=== PATIENT | male | born 1970 | race Caucasian/White ===

== ENCOUNTER 2017-03-14 15:43 | Emergency (ER) | payer MEDICAID, OTHER ==
[~2017-03-14] VITALS: Ht 185.4 cm; Wt 96.0 kg
[~2017-03-14 15:43] MED LIST: HYDR-3533 PO; LISI-363 PO
[2017-03-14 15:46] VITALS: BP 147/91; PULSE 92; RESP 18; TEMP 98.4; O2SAT 98
[2017-03-14 16:53] LABS: AUTOMATED NEUTROPHIL # 4.6 TH/MM3 (1.8-7.7); BASOPHIL # 0.1 TH/MM3 (0-0.2); BASOPHIL % 0.7 % (0.0-2.0); EOSINOPHIL % 0.6 % (0.0-4.0); HEMATOCRIT 46.5 % (39.0-51.0); HEMO FLAGS DIFF FINAL; LYMPH % 32.1 % (9.0-44.0); LYMPHOCYTE # 2.5 TH/MM3 (1.0-4.8); MEAN CELL VOLUME 86.9 FL (80.0-100.0); MEAN CORPUSCULAR HEMOGLOBIN 30.2 PG (27.0-34.0); MEAN CORPUSCULAR HGB CONC 34.7 % (32.0-36.0); MONO % 8.7 % (0.0-8.0); NEUT % 57.9 % (16.0-70.0); PLATELET COUNT 232 TH/MM3 (150-450); RED BLOOD COUNT 5.35 MIL/MM3 (4.50-5.90); RED CELL DISTRIBUTION WIDTH 13.7 % (11.6-17.2); WHITE BLOOD COUNT 7.9 TH/MM3 (4.0-11.0)
[2017-03-14 17:16] LABS: ALKALINE PHOSPHATASE 85 U/L (45-117); TOTAL BILIRUBIN ADULT 0.6 MG/DL (0.2-1.0)
[2017-03-14 17:18] LABS: ALT (GPT) 21 U/L (12-78); ANION GAP 8 MEQ/L (5-15); AST (GOT) 17 U/L (15-37); BICARBONATE 26.4 MEQ/L (21.0-32.0); BLOOD UREA NITROGEN 13 MG/DL (7-18); CHLORIDE 104 MEQ/L (98-107); GLOMERULAR FILTRATION RATE 64 ML/MIN (>89); SODIUM (NA) 138 MEQ/L (136-145)
[2017-03-14 17:21] LABS: POTASSIUM 3.8 MEQ/L (3.5-5.1)
[2017-03-14 17:23] LABS: BLOOD, URINE LARGE (NEG); GLUCOSE,URINE NEG (NEG); KETONE, URINE NEG (NEG); MUCUS URINE FEW /lpf (OCC); NITRITE,URINE NEG (NEG); PH, URINE 5.5 (5.0-8.5); URINE COLOR YELLOW (YELLW/STRAW)
[2017-03-14 17:24] LABS: COMMENT (UR) CULT NOT INDICATED; CULTURE IF INDICATED CULT NOT INDICATED
[2017-03-14 17:31] VITALS: BP 143/97; PULSE 74; RESP 16; O2SAT 100
[2017-03-14] MEDS ORDERED: LISI-515 PO (17:37)
--- NOTE | 2017-03-14 17:50 | PD ---
HPI Chief Complaint: Complaint Time Seen by Provider: 17:30 Travel History International Travel<30 days: No Contact w/Intl Traveler<30days: No Traveled to known affect area: No History of Present Illness HPI This patient complains of right flank pain. Duration 2 days. Severity is moderate. He complains of hematuria. No fever or injury. Symptoms have no alleviating factors. No sciatic radiation PFSH Past Medical History Hx Anticoagulant Therapy: No Cardiovascular Problems: Yes (htn) Chemotherapy: No Cerebrovascular Accident: No Diabetes: No Diminished Hearing: No Hypertension: Yes Respiratory: No Immunizations Current: Yes Influenza Vaccination: Yes Past Surgical History Abdominal Surgery: Yes (EXPLORATORY LAP STOMACH) Other Surgery: Yes (RT RING FINGER) Social History Alcohol Use: No Tobacco Use: No Substance Use: No Allergies-Medications (Allergen,Severity, Reaction): Coded Allergies: acetaminophen (Unverified Allergy, Unknown, 03/14/17) propoxyphene (Unverified Allergy, Unknown, 03/14/17) Reported Meds & Prescriptions Reported Meds & Active Scripts Active Reported Lisinopril 20 Mg Tab 20 Mg PO DAILY Review of Systems General / Constitutional: No: Fever Eyes: No: Visual changes HENT: No: Headaches Cardiovascular: No: Chest Pain or Discomfort Respiratory: No: Shortness of Breath Gastrointestinal: No: Abdominal Pain Genitourinary: Positive: Flank Pain, No: Dysuria Musculoskeletal: Positive: Pain Skin: No Rash Neurologic: No: Weakness Psychiatric: No: Depression Endocrine: No: Polydipsia Hematologic/Lymphatic: No: Easy Bruising Physical Exam Narrative GENERAL: Well-nourished, well-developed patient in no apparent distress. SKIN: Focused skin assessment reveals no rash and nodules. Skin is Warm and dry. HEAD: Atraumatic. Normocephalic. EYES: Pupils equal and round. No scleral icterus. No injection or drainage. ENT: No nasal bleeding or discharge. Mucous membranes pink and moist. NECK: Trachea midline. No JVD. CARDIOVASCULAR: Regular rate and rhythm. No murmur appreciated. RESPIRATORY: No accessory muscle use. Clear to auscultation. Breath sounds equal bilaterally. GASTROINTESTINAL: Abdomen soft, non-tender, nondistended. Hepatic and splenic margins not palpable. MUSCULOSKELETAL: No obvious deformities. No clubbing. No cyanosis. No edema. No midline or CVA tenderness NEUROLOGICAL: Awake and alert. No obvious cranial nerve deficits. Motor grossly within normal limits. Normal speech. PSYCHIATRIC: Appropriate mood and affect; insight and judgment normal. Data Data Last Documented VS Vital Signs Date Time Temp Pulse Resp B/P Pulse Ox O2 Delivery O2 Flow Rate FiO2 03/14/17 17:31 74 16 143/97 100 Room Air 03/14/17 15:46 98.4 Orders Complete Blood Count With Diff (03/14/17 15:55) Comprehensive Metabolic Panel (03/14/17 15:55) Urinalysis - C+S If Indicated (03/14/17 15:55) Lipase (03/14/17 15:55) Ct Abd/Pel W/O Iv Contrast (03/14/17 ) Labs Laboratory Tests Test 03/14/17 03/14/17 16:02 16:25 White Blood Count 7.9 TH/MM3 Red Blood Count 5.35 MIL/MM3 Hemoglobin 16.2 GM/DL Hematocrit 46.5 % Mean Corpuscular Volume 86.9 FL Mean Corpuscular Hemoglobin 30.2 PG Mean Corpuscular Hemoglobin 34.7 % Concent Red Cell Distribution Width 13.7 % Platelet Count 232 TH/MM3 Mean Platelet Volume 8.7 FL Neutrophils (%) (Auto) 57.9 % Lymphocytes (%) (Auto) 32.1 % Monocytes (%) (Auto) 8.7 % Eosinophils (%) (Auto) 0.6 % Basophils (%) (Auto) 0.7 % Neutrophils # (Auto) 4.6 TH/MM3 Lymphocytes # (Auto) 2.5 TH/MM3 Monocytes # (Auto) 0.7 TH/MM3 Eosinophils # (Auto) 0.0 TH/MM3 Basophils # (Auto) 0.1 TH/MM3 CBC Comment DIFF FINAL Differential Comment Sodium Level 138 MEQ/L Potassium Level 3.8 MEQ/L Chloride Level 104 MEQ/L Carbon Dioxide Level 26.4 MEQ/L Anion Gap 8 MEQ/L Blood Urea Nitrogen 13 MG/DL Creatinine 1.21 MG/DL Estimat Glomerular Filtration 64 ML/MIN Rate Random Glucose 75 MG/DL Calcium Level 9.9 MG/DL Total Bilirubin 0.6 MG/DL Aspartate Amino Transf 17 U/L (AST/SGOT) Alanine Aminotransferase 21 U/L (ALT/SGPT) Alkaline Phosphatase 85 U/L Total Protein 7.8 GM/DL Albumin 4.3 GM/DL Lipase 106 U/L Urine Color YELLOW Urine Turbidity SLIGHT Urine pH 5.5 Urine Specific Butler 1.011 Urine Protein NEG mg/dL Urine Glucose (UA) NEG mg/dL Urine Ketones NEG mg/dL Urine Occult Blood LARGE Urine Nitrite NEG Urine Bilirubin NEG Urine Urobilinogen LESS THAN 2.0 MG/DL Urine Leukocyte Esterase NEG Urine RBC /hpf Urine WBC 1 /hpf Urine Mucus FEW /lpf Microscopic Urinalysis Comment CULT NOT INDICATED MDM Medical Decision Making Medical Screen Exam Complete: Yes Emergency Medical Condition: Yes Medical Record Reviewed: Yes Differential Diagnosis Kidney stone, sciatica, pyelonephritis Narrative Course I have reviewed the patient's electronic medical record. Reviewed his CT from last year showing nonobstructive stones and his cystoscopy results from last year CBC is normal Metabolic profile is normal LFTs are normal Urinalysis shows hematuria without infection CT of abdomen and pelvis shows bilateral nonobstructing stones but no hydronephrosis Stable for outpatient urology follow-up I wrote him some tramadol Diagnosis Primary Impression: Acute right flank pain Additional Impression: Hematuria Qualified Code: R31.9 - Hematuria, unspecified type Additional Instructions: Follow-up with urology The patient was warned about potential sedation for the medications they will receive on prescription. Med/Other Pt SpecificInfo: Prescription(s) given Scripts Tramadol 50 Mg Tab50 Mg PO Q6H PRN (PAIN) #25 TAB Ref 0 Prov:Chad Tatum MD 03/14/17 Disposition: 01 DISCHARGE HOME Condition: Stable Chad Tatum MD Mar 14, 2017 17:50
--- NOTE | 2017-03-14 20:02 | RADRPT ---
EXAM DATE/TIME: 03/14/2017 19:43 [facility] COMPARISON: CT ABDOMEN & PELVIS W/O CONTRAST, March 04, 2016, 10:49. CT LUMBAR SPINE W/O CONTRAST, October 01 16, 12:22. SPINE LUMBAR LTD (AP & LAT), May 18, 2016, 12:29. INDICATIONS : Right flank pain and hematuria. ORAL CONTRAST: No oral contrast ingested. RADIATION DOSE: 8.52 CTDIvol (mGy) MEDICAL HISTORY : Renal calculi. Cardiovascular disease Hypertension. SURGICAL HISTORY : Exploratory lap surgery ENCOUNTER: Initial ACUITY: 1 day PAIN SCALE: 7/10 LOCATION: Right flank TECHNIQUE: Volumetric scanning of the abdomen and pelvis was performed. Using automated exposure control and ad justment of the mA and/or kV according to patient size, radiation dose was kept as low as reasonably achievable to obtain optimal diagnostic quality images. DICOM format image data is available electro nically for review and comparison. FINDINGS: CT Abdomen: The liver, spleen, pancreas, adrenals are unremarkable. There are multiple stones in both kidneys. In the right kidney there are 6 may be 7 separate stones the largest measures 4-5 minutes s wilfred in size. In the left kidney there are 5 may be see separate stones the largest one measuring al most 3-4 mm in size. There is no evidence for any appreciable pathological adenopathy, free fluid, or bowel obstruction. There is no ureteral stone and there is no hydronephrosis on either side. There is evidence for prior cholecystectomy. CT pelvis: There is no evidence for mass, abscess formation, or any significant adenopathy within the pelvis. The prostate gland is inhomogeneous and measures 3.3 x 4.4 cm in AP and transverse diameters and nonspecific with dense calcifications. There is facet arthrosis in the lower lumbosacral spine a nd it is difficult to exclude spondylolysis chronic in nature. CONCLUSION: Multiple nonobstructing bilateral renal stones. Allen Castano MD on March 14, 2017 at 19:55 Board Certified Radiologist. This report was verified electronically.
[2017-03-14] MEDS ORDERED: TRAM50TA PO (20:48)
== END 2017-03-14 20:59 | disposition home or self-care (01) ==
LOC: NEPD 15:43
DX: R10.9 Unspecified abdominal pain (principal); R31.9 Hematuria, unspecified; I10 Essential (primary) hypertension
CPT/HCPCS: 74176; 80053; 81001; 83690; 85025

== ENCOUNTER 2017-04-15 08:16 | Emergency (ER) | payer OTHER, MEDICAID ==
[~2017-04-15] VITALS: Ht 185.4 cm; Wt 99.0 kg
[~2017-04-15 08:16] MED LIST changes: -HYDR-3533 PO; -LISI-363 PO; +LISI-515 PO; +TRAM50TA PO
[2017-04-15 08:18] VITALS: BP 160/100; PULSE 72; RESP 24; TEMP 97.8; O2SAT 100
--- NOTE | 2017-04-15 08:42 | PD ---
HPI Chief Complaint: Back/ Neck Pain or Injury Time Seen by Provider: 08:42 Travel History International Travel<30 days: No Contact w/Intl Traveler<30days: No Traveled to known affect area: No History of Present Illness HPI 46-year-old male presents emergency Department with complaint of mid and right- sided lower back pain after slipping on a piece of ham on the floor at work and falling and landing on his buttocks 3 days ago. He was seen at [facility] today after the fall and said x-rays were done but he was told that he would be okay until better in a few days and has not told the conclusion of the x-rays. His pain has worsened and he would like to be reevaluated. Denies history of back pain. Denies encopresis, incontinence, saddle anesthesias. Denies IV drug use or cancer. Denies paresthesias, loss of sensation, decreased range of motion, decreased strength to bilateral lower extremities. Pain radiates down the right leg. Denies fever, vomiting. Denies change in stool or urine. Pain is aggravated with ambulation and patient has a limp to the right lower extremity. Has been taking ibuprofen for symptom management. Symptoms are moderate in severity. Has no other medical complaints. Allergies to acetaminophen and propoxyphene. No other modifying factors or associated signs and symptoms. PFSH Past Medical History Hx Anticoagulant Therapy: No Cardiovascular Problems: Yes (htn) Chemotherapy: No Cerebrovascular Accident: No Diabetes: No Diminished Hearing: No Hypertension: Yes Respiratory: No Immunizations Current: Yes Past Surgical History Abdominal Surgery: Yes (EXPLORATORY LAP STOMACH) Other Surgery: Yes (RT RING FINGER) Social History Alcohol Use: No Tobacco Use: No Substance Use: No Allergies-Medications (Allergen,Severity, Reaction): Coded Allergies: acetaminophen (Unverified Allergy, Unknown, 03/14/17) propoxyphene (Unverified Allergy, Unknown, 03/14/17) Reported Meds & Prescriptions Reported Meds & Active Scripts Active Reported Lisinopril 20 Mg Tab 20 Mg PO DAILY Review of Systems Except as stated in HPI: all other systems reviewed are Neg Physical Exam Narrative GENERAL: Well-nourished, well-developed male patient, in no acute distress; afebrile, nontoxic-appearing SKIN: Warm and dry. HEAD: Atraumatic. Normocephalic. EYES: Pupils equal and round. No scleral icterus. No injection or drainage. ENT: Mucosa pink and moist. Airway patent. NECK: Trachea midline. Moving freely. CARDIOVASCULAR: Regular rate. RESPIRATORY: No accessory muscle use. GASTROINTESTINAL: Rounded. MUSCULOSKELETAL: Bilateral lower extremities supple and non-tense with 2+ pedal pulses and sensory intact; with full range of motion and 5/5 strength. 2 + DTRs bilaterally. Active dorsiflexion and extension of bilateral feet. Right straight leg raise is positive for low back pain. Ambulatory in room with limp to the right lower extremity and guarded gait. Sitting up in bed at 90. No obvious deformities. No clubbing. No cyanosis. No edema. BACK: Midline point tenderness on palpation of the lumbar spine. No midline tenderness on palpation of the thoracic or cervical spine. Tenderness on palpation of right lumbar paraspinal and iliosacral area. No obvious deformities. NEUROLOGICAL: Awake and alert. Oriented 3. No obvious cranial nerve deficits. Motor grossly within normal limits. Normal speech. Moves all extremities. 5/5 strength to all extremities. Sensory intact. PSYCHIATRIC: Appropriate mood and affect; insight and judgment normal. Data Data Last Documented VS Vital Signs Date Time Temp Pulse Resp B/P (MAP) Pulse Ox O2 Delivery O2 Flow Rate FiO2 04/15/17 08:25 17 04/15/17 08:18 97.8 72 160/100 (120) 100 Room Air Orders Orders Ct Lumb Spine W/O Contrast (04/15/17 ) Ketorolac Inj (Toradol Inj) (04/15/17 08:45) Orphenadrine Inj (Norflex Inj) (04/15/17 08:45) MDM Medical Decision Making Medical Screen Exam Complete: Yes Emergency Medical Condition: Yes Medical Record Reviewed: Yes Differential Diagnosis Low back strain, low back contusion, lumbar fracture, sciatica Narrative Course 46-year-old male with low back pain after mechanical slip and fall 3 days ago. He landed on his butt. He was evaluated at [facility] the day after the fall and had x-rays done which the patient does not know the results. Denies hitting his head or loss of consciousness. Denies neck pain. Denies encopresis , incontinence, saddle anesthesias. Denies IV drug use or cancer. Denies fever , vomiting. Patient is ambulatory in the room with a guarded gait. Patient has tenderness on palpation of the lumbar spine. Toradol and Norflex administered in the ER. CT lumbar spine ordered. 0949: CT lumbar spine concludes: Last 24 hours Impressions Lumbar Spine CT 04/15/17 0000 Signed Impressions: Service Date/Time: Thursday, April 15, 2017 09:00 - CONCLUSION: Minimal disc disease L5-S1 with mild progression in the interval. Bilateral renal stones There is no evidence of fracture. Jaswant Peters MD FACR Patient provided a copy of the CT scan report and findings discussed. Flexeril , ibuprofen, Medrol Dosepak prescribed for home. Instructed patient to follow up with primary care provider. Patient verbalizes understanding and agreement with treatment plan. Patient is medically cleared and stable for discharge. Discussed reasons to return to the emergency department. Patient agrees with treatment plan. The patients vital signs are stable and the patient is stable for outpatient follow-up and treatment. Patient discharged home, stable and in no acute distress. Diagnosis Primary Impression: Injury of low back Qualified Codes: S39.92XA - Unspecified injury of lower back, initial encounter Additional Impression: Right-sided low back pain with right-sided sciatica Qualified Codes: M54.41 - Lumbago with sciatica, right side Referrals: Primary Care Physician Patient Instructions: Acute Low Back Pain (ED), General Instructions, Low Back Strain (ED), Lower Back Exercises (ED), Sciatica (ED) Departure Forms: Tests/Procedures, Work Release Enter return to work date: Apr 22, 2017 Additional Instructions: Tylenol or ibuprofen as directed and as needed for pain Flexeril as prescribed and as needed for muscle spasms Heating pad and/or ice to affected area to reduce pain Avoid aggravating activities; increase activity as tolerated Follow-up with primary care provider Return to emergency department immediately with worsening of symptoms Med/Other Pt SpecificInfo: Prescription(s) given Scripts Methylprednisolone Dosepak (Medrol Dosepak) 4 Mg Dspk 4 MG PO DIRECTED, #1 DSPK 0 Refills Per Pharmacist direction Prov: Laura Graves 04/15/17 Ibuprofen (Ibuprofen) 800 Mg Tab 800 MG PO Q6HR Y for PAIN, #30 TAB 0 Refills Prov: Laura GravesP 04/15/17 Cyclobenzaprine (Flexeril) 10 Mg Tab 10 MG PO TID for Muscle Spasm, #30 TAB 0 Refills Prov: Laura Graves 04/15/17 Disposition: 01 DISCHARGE HOME Condition: Stable Laura Graves Apr 15, 2017 08:42
[2017-04-15] MEDS ORDERED: KETOROLAC TROMETHAMINE 60 MG/2 ML (IM) VIAL IM ONE (08:45)
[2017-04-15] MEDS ORDERED: ORPHENADRINE INJ 60 MG/2 ML AMP IM ONE (08:45)
--- NOTE | 2017-04-15 09:39 | RADRPT ---
EXAM DATE/TIME: 04/15/2017 09:00 [facility] COMPARISON: CT LUMBAR SPINE W/O CONTRAST, October 02, 2015, 12:22. INDICATIONS : Fall 3 days ago. Right lower back pain. RADIATION DOSE: 21.85 CTDIvol (mGy) MEDICAL HISTORY : Hypertension. SURGICAL HISTORY : None. ENCOUNTER: Initial ACUITY: 3 days PAIN SCALE: 5/10 LOCATION: Right back TECHNIQUE: Volumetric scanning of the lumbar spine was performed. Multiplanar reconstructions in the sagittal, coronal and oblique axial planes were performed. Using automated exposure control and adjustment of the mA and/or kV according to patient size, radiation dose was kept as low as reasonably achievable t o obtain optimal diagnostic quality images. DICOM format image data is available electronically for review and comparison. FINDINGS: VERTEBRAE: Normal vertebral body height. ALIGNMENT: No evidence of subluxation. T12-L1: The thecal sac has a normal diameter. No evidence of disc bulge or protrusion. The neural foramina are patent bilaterally. L1-L2: The thecal sac has a normal diameter. No evidence of disc bulge or protrusion. The neural foramina are patent bilaterally. L2-L3: The thecal sac has a normal diameter. No evidence of disc bulge or protrusion. The neural foramina are patent bilaterally. L3-L4: The thecal sac has a normal diameter. No evidence of disc bulge or protrusion. The neural foramina are patent bilaterally. L4-L5: The thecal sac has a normal diameter. No evidence of disc bulge or protrusion. The neural foramina are patent bilaterally. Minimal facet disease is evident. L5-S1: There is essentially disc bulging evident causing mild right-sided neuroforaminal encroachment and co mpression on the right L5 root in the neural foramen. There is minimal involvement of the right S1 r oot. Bilateral renal calculi are evident. CONCLUSION: Minimal disc disease L5-S1 with mild progression in the interval. Bilateral renal stones There is no evidence of fracture. Jaswant Peters MD FACR on April 15, 2017 at 9:35 Board Certified Radiologist. This report was verified electronically.
[2017-04-15] MEDS ORDERED: MEDR4PAK PO (09:52)
[2017-04-15] MEDS ORDERED: CYCL1TAB29 PO (09:52)
[2017-04-15] MEDS ORDERED: IBUP800T23 PO (09:52)
== END 2017-04-15 10:12 | disposition home or self-care (01) ==
LOC: NEPD 08:16
DX: S39.92XA Unspecified injury of lower back, initial encounter (principal); M54.41 Lumbago with sciatica, right side; I10 Essential (primary) hypertension; W01.198A Fall on same level from slipping, tripping and stumbling with subsequent striking against other object, initial encounter; Y93.9 Activity, unspecified; Y92.9 Unspecified place or not applicable; Y99.0 Civilian activity done for income or pay
CPT/HCPCS: 72131; 96372; 99285; J1885; J2360

== ENCOUNTER 2017-06-05 14:05 | Emergency (ER) | payer OTHER, MEDICAID ==
[~2017-06-05] VITALS: Ht 185.4 cm; Wt 100.0 kg
[~2017-06-05 14:05] MED LIST changes: +CYCL10TA PO; +IBUP1TAB7 PO; +MEDR4PAK PO; -TRAM50TA PO
[2017-06-05 14:07] VITALS: BP 138/96; PULSE 77; RESP 14; TEMP 98.7; O2SAT 99
--- NOTE | 2017-06-05 14:32 | PD ---
HPI Chief Complaint: Fall Time Seen by Provider: 14:14 Travel History International Travel<30 days: No Contact w/Intl Traveler<30days: No Traveled to known affect area: No History of Present Illness HPI 46-year-old male presents emergency status post slip and fall at work on 04/04/2017. Patient has been seen and evaluated both at [facility] and here, last on 04/15/17. Patient has been seen Worker's Comp. providers but in the last 3 days he's had increasing symptoms consisting of right-sided low back pain with radicular pain into the right lower leg. Patient is stating he could not get into his Worker's Comp. provider until next Thursday. Patient is having increased pain and difficulty ambulating, which is why he came to the emergency department. Patient denies any specific new injury, but states that his workplace has not been adhering to his restrictions as applied by Worker's Comp. Pain is now 9 out of 10 down the right leg. He states he cannot control. He is instructed to his sleep. Bowel or bladder trouble. Denies specific weakness other than from pain. Patient is allergic to acetaminophen and propoxyphene. PFSH Past Medical History Hx Anticoagulant Therapy: No Cardiovascular Problems: Yes (htn) Chemotherapy: No Cerebrovascular Accident: No Diabetes: No Diminished Hearing: No Hypertension: Yes Respiratory: No Immunizations Current: Yes Past Surgical History Abdominal Surgery: Yes (EXPLORATORY LAP STOMACH) Other Surgery: Yes (RT RING FINGER) Social History Alcohol Use: No Tobacco Use: No Substance Use: No Allergies-Medications (Allergen,Severity, Reaction): Coded Allergies: acetaminophen (Unverified Allergy, Unknown, 03/14/17) propoxyphene (Unverified Allergy, Unknown, 03/14/17) Reported Meds & Prescriptions Reported Meds & Active Scripts Active Tramadol (Tramadol HCl) 50 Mg Tab 50 Mg PO Q6H PRN Prednisone 20 Mg Tab 20 Mg PO BID 7 Days Medrol Dosepak (Methylprednisolone) 4 Mg Dspk 4 Mg PO DIRECTED Per Pharmacist direction Ibuprofen 800 Mg Tab 800 Mg PO Q6HR PRN Flexeril (Cyclobenzaprine HCl) 10 Mg Tab 10 Mg PO TID Reported Lisinopril 20 Mg Tab 20 Mg PO DAILY Review of Systems Except as stated in HPI: all other systems reviewed are Neg General / Constitutional: No: Fever Eyes: No: Visual changes HENT: No: Headaches Cardiovascular: No: Chest Pain or Discomfort Respiratory: No: Shortness of Breath Gastrointestinal: No: Abdominal Pain Genitourinary: No: Dysuria Musculoskeletal: Positive: Myalgias, Arthralgias, Limited ROM, Pain Skin: No Rash Neurologic: No: Weakness Psychiatric: No: Depression Endocrine: No: Polydipsia Hematologic/Lymphatic: No: Easy Bruising Physical Exam Narrative GENERAL: Patient is in moderate distress. SKIN: Warm and dry. Normal color. Normal turgor. No signs of trauma. No rash. HEAD: Atraumatic. Normocephalic. EYES: Pupils equal and round. No scleral icterus. No injection or drainage. ENT: No nasal bleeding or discharge. Mucous membranes pink and moist. Pharynx is clear. Airway is patent NECK: Trachea midline. Supple and nontender. CARDIOVASCULAR: Regular rate and rhythm. RESPIRATORY: No accessory muscle use. Clear to auscultation. Breath sounds equal bilaterally. GASTROINTESTINAL: Abdomen soft, non-tender, nondistended. Hepatic and splenic margins not palpable. MUSCULOSKELETAL: Extremities without clubbing, cyanosis, or edema. No obvious deformities. Patient has pain along the right lower lumbar paraspinous region as well as into the sciatic notch. Patient has positive straight leg raise pain on the right at 30. Deep tendon reflexes are 2+ and equal bilaterally in both patellar and Achilles tendons. Patient is able to tiptoe and heel walk without difficulty secondary to pain. NEUROLOGICAL: Awake and alert. No obvious cranial nerve deficits. Motor grossly within normal limits. Five out of 5 muscle strength in the arms and legs. Normal speech. PSYCHIATRIC: Appropriate mood and affect; insight and judgment normal. Data Data Last Documented VS Vital Signs Date Time Temp Pulse Resp B/P (MAP) Pulse Ox O2 Delivery O2 Flow Rate FiO2 06/05/17 14:07 98.7 77 14 138/96 (110) 99 Orders Orders Dexamethasone Inj (Decadron Inj) (06/05/17 14:45) Ketorolac Inj (Toradol Inj) (06/05/17 14:45) [facility] Medical Decision Making Medical Screen Exam Complete: Yes Emergency Medical Condition: Yes Medical Record Reviewed: Yes Differential Diagnosis Lumbar strain. Sciatica. Lumbago. Slip and fall. Narrative Course Repeat radiographic imaging is not felt warranted at this time based on my history and physical. Patient is given Toradol 60 mg IM. Patient is given Decadron 10 mg IM. Patient will be continued on prednisone 20 mg twice a day 7 days. Patient given tramadol 50 mg one every 6 hours when necessary pain #20. Patient is kept out of work until cleared by Worker's Comp. Worker's Comp. forms filled out, and patient should follow-up with them on 09 June. Patient should return to the emergency department if symptoms worsen especially weakness or bowel or bladder issues. Diagnosis Primary Impression: Work related injury Additional Impression: Lumbago with sciatica, right side Qualified Codes: M54.41 - Lumbago with sciatica, right side Patient Instructions: General Instructions, Lower Back Exercises (ED), Lumbar Radiculopathy (ED) Additional Instructions: Repeat radiographic imaging is not felt warranted at this time based on my history and physical. Patient is given Toradol 60 mg IM. Patient is given Decadron 10 mg IM. Patient will be continued on prednisone 20 mg twice a day 7 days. Patient given tramadol 50 mg one every 6 hours when necessary pain #20. Patient is kept out of work until cleared by Worker's Comp. Worker's Comp. forms filled out, and patient should follow-up with them on 09 June. Patient should return to the emergency department if symptoms worsen especially weakness or bowel or bladder issues. Med/Other Pt SpecificInfo: Prescription(s) given Scripts Tramadol (Tramadol) 50 Mg Tab 50 MG PO Q6H Y for PAIN, #20 TAB 0 Refills Prov: Suhas Rose MD 06/05/17 Prednisone (Prednisone) 20 Mg Tab 20 MG PO BID for 7 Days, #14 TAB 0 Refills Prov: Suhas Rose MD 06/05/17 Disposition: 01 DISCHARGE HOME Condition: Stable Trenton Hightower Jun 05, 2017 14:32
[2017-06-05] MEDS ORDERED: PRED20 PO (14:35)
[2017-06-05] MEDS ORDERED: TRAM50TA PO (14:35)
[2017-06-05] MEDS ORDERED: KETOROLAC TROMETHAMINE 60 MG/2 ML (IM) VIAL IM ONE (14:45)
[2017-06-05] MEDS ORDERED: DEXAMETHASONE SOD PHOS 20 MG/5 ML VIAL IM ONE (14:45)
== END 2017-06-05 15:22 | disposition home or self-care (01) ==
LOC: NEPK 14:05
DX: M54.41 Lumbago with sciatica, right side (principal); W01.0XXA Fall on same level from slipping, tripping and stumbling without subsequent striking against object, initial encounter; Y99.0 Civilian activity done for income or pay
CPT/HCPCS: 96372; 99284; J1100; J1885

== ENCOUNTER 2017-06-21 10:11 | Inpatient (IN) | payer MEDICAID ==
[~2017-06-21] VITALS: Ht 185.4 cm; Wt 94.5 kg
[2017-06-21] VITALS (7 sets, daily range): BP systolic 134–180; BP diastolic 83–116; PULSE 77–99; RESP 16–18; TEMP 97.6–98.5; O2SAT 95–100
[~2017-06-21 10:11] MED LIST changes: +PRED20 PO; +TRAM50TA PO
--- NOTE | 2017-06-21 10:34 | PD ---
HPI Chief Complaint: Eye Problems/Injury Time Seen by Provider: 10:27 Travel History International Travel<30 days: No Contact w/Intl Traveler<30days: No Traveled to known affect area: No History of Present Illness HPI Patient presents with complaints of progressive blurred vision photophobia and headache over the last 5 months. Headache is located just behind both eyes. Initially went to [facility] for assistance with eyeglasses. They recommended an career information specialist. Evaluated by [facility] with concerns of bilateral optic neuritis. Without any significant findings. They recommended follow-up with neurology. Patient is not a smoker. Denies any illicit drug use. Compliant with lisinopril for hypertension. Patient states he has been unable to follow-up with neurology and today is his only day off. Alternating Motrin and Tylenol for pain. Compliant with lisinopril for hypertension. PFSH Past Medical History Hx Anticoagulant Therapy: No Cardiovascular Problems: Yes (htn) Chemotherapy: No Cerebrovascular Accident: No Diabetes: No Diminished Hearing: No Hypertension: Yes Respiratory: No Immunizations Current: Yes Tetanus Vaccination: < 5 Years Past Surgical History Abdominal Surgery: Yes (EXPLORATORY LAP STOMACH) Other Surgery: Yes (RT RING FINGER) Social History Alcohol Use: No Tobacco Use: No Substance Use: No Allergies-Medications (Allergen,Severity, Reaction): Coded Allergies: acetaminophen (Unverified Allergy, Unknown, 06/21/17) propoxyphene (Unverified Allergy, Unknown, 06/21/17) Reported Meds & Prescriptions Reported Meds & Active Scripts Active Reported Lisinopril 20 Mg Tab 20 Mg PO DAILY Review of Systems General / Constitutional: No: Fever Eyes: No: Visual changes HENT: No: Headaches Cardiovascular: No: Chest Pain or Discomfort Respiratory: No: Shortness of Breath Gastrointestinal: No: Abdominal Pain Genitourinary: No: Dysuria Musculoskeletal: No: Pain Skin: No Rash Neurologic: No: Weakness Psychiatric: No: Depression Endocrine: No: Polydipsia Hematologic/Lymphatic: No: Easy Bruising Physical Exam Narrative GENERAL: Well-nourished, well-developed patient. SKIN: Focused skin assessment warm/dry. HEAD: Normocephalic. EYES: No scleral icterus. No injection or drainage. Pupils equal round reactive light accommodation NECK: Supple, trachea midline. No JVD or lymphadenopathy. CARDIOVASCULAR: Regular rate and rhythm without murmurs, gallops, or rubs. RESPIRATORY: Breath sounds equal bilaterally. No accessory muscle use. GASTROINTESTINAL: Abdomen soft, non-tender, nondistended. MUSCULOSKELETAL: No cyanosis, or edema. BACK: Nontender without obvious deformity. No CVA tenderness. Data Data Last Documented VS Vital Signs Date Time Temp Pulse Resp B/P (MAP) Pulse Ox O2 Delivery O2 Flow Rate FiO2 06/21/17 10:15 97.6 83 18 170/96 (120) [address] Brain W/O Iv Contrast(Rout) (06/21/17 ) Westergren Sedimentation Rate (06/21/17 12:40) Acetamin-Hydrocod 325-5 Mg (Ilfeld 5-325 (06/21/17 12:45) Complete Blood Count With Diff (06/21/17 12:47) Comprehensive Metabolic Panel (06/21/17 12:47) Prothrombin Time / Inr (Pt) (06/21/17 12:47) Act Partial Throm Time (Ptt) (06/21/17 12:47) Methylprednisolone So Succ Inj (Solumedr (06/21/17 13:00) Admit Order (Ed Use Only) (06/21/17 ) Vital Signs (Adult) Q4H (06/21/17 12:55) Diet Heart Healthy (06/21/17 Lunch) Notify Dr: Other (06/21/17 12:55) Consult Neurology (06/21/17 ) Labs Laboratory Tests Test 06/21/17 12:50 White Blood Count 7.6 TH/MM3 Red Blood Count 5.09 MIL/MM3 Hemoglobin 15.1 GM/DL Hematocrit 45.6 % Mean Corpuscular Volume 89.6 FL Mean Corpuscular Hemoglobin 29.7 PG Mean Corpuscular Hemoglobin Concent 33.1 % Red Cell Distribution Width 13.6 % Platelet Count 229 TH/MM3 Mean Platelet Volume 8.1 FL Neutrophils (%) (Auto) 64.1 % Lymphocytes (%) (Auto) 27.9 % Monocytes (%) (Auto) 7.0 % Eosinophils (%) (Auto) 0.5 % Basophils (%) (Auto) 0.5 % Neutrophils # (Auto) 5.0 TH/MM3 Lymphocytes # (Auto) 2.1 TH/MM3 Monocytes # (Auto) 0.5 TH/MM3 Eosinophils # (Auto) 0.0 TH/MM3 Basophils # (Auto) 0.0 TH/MM3 CBC Comment DIFF FINAL Differential Comment Erythrocyte Sedimentation Rate 1 mm/hr Prothrombin Time 10.2 SEC Prothromb Time International Ratio 0.9 RATIO Activated Partial Thromboplast Time 33.4 SEC Blood Urea Nitrogen 9 MG/DL Creatinine 1.00 MG/DL Random Glucose 86 MG/DL Total Protein 7.2 GM/DL Albumin 3.8 GM/DL Calcium Level 9.2 MG/DL Alkaline Phosphatase 86 U/L Aspartate Amino Transf (AST/SGOT) 14 U/L Alanine Aminotransferase (ALT/SGPT) 23 U/L Total Bilirubin 0.6 MG/DL Sodium Level 139 MEQ/L Potassium Level 4.3 MEQ/L Chloride Level 106 MEQ/L Carbon Dioxide Level 28.3 MEQ/L Anion Gap 5 MEQ/L Estimat Glomerular Filtration Rate 80 ML/MIN MDM Medical Decision Making Medical Screen Exam Complete: Yes Emergency Medical Condition: Yes Differential Diagnosis CVA, migraine, optic neuritis Narrative Course Assessment and plan discussed with patient at bedside. CT of the head reveals no acute intracranial process. Extracranial findings findings reveal a portion of the orbits which are intact. Small air-fluid level in the visualized portion of the left maxillary sinus Physician Communication Physician Communication Spoke with Dr. Kohli/neurology with recommendations for admissions, an MRI, consult to radiology for LP and Solu-Medrol 1000 mg daily over 3 hours for [address] Redman who is in agreement will admit. Diagnosis Primary Impression: Blurred vision Additional Impressions: Photophobia Headache Qualified Codes: R51 - Headache Optic neuritis Valdo Manley MD Jun 21, 2017 10:34
--- NOTE | 2017-06-21 11:10 | RADRPT ---
EXAM DATE/TIME: 06/21/2017 10:43 [facility] COMPARISON: CT BRAIN W/O CONTRAST, October 02, 2015, 12:19. INDICATIONS : Bilateral eye pain with blurred vision for three months. RADIATION DOSE: 59.98 CTDIvol (mGy) MEDICAL HISTORY : Hypertension. Renal calculi. SURGICAL HISTORY : None. ENCOUNTER: Initial ACUITY: 3 months PAIN SCALE: 8/10 LOCATION: Bilateral cranial TECHNIQUE: Multiple contiguous axial images were obtained of the head. Using automated exposure control and adj ustment of the mA and/or kV according to patient size, radiation dose was kept as low as reasonably a chievable to obtain optimal diagnostic quality images. DICOM format image data is available electro nically for review and comparison. FINDINGS: CEREBRUM: The ventricles are normal for age. No evidence of midline shift, mass lesion, hemorrhage or acute in farction. No extra-axial fluid collections are seen. POSTERIOR FOSSA: The cerebellum and brainstem are intact. The 4th ventricle is midline. The cerebellopontine angle i s unremarkable. EXTRACRANIAL: The visualized portion of the orbits is intact. Small air-fluid level in the visualized portion of t he left maxillary sinus. SKULL: The calvaria is intact. No evidence of skull fracture. CONCLUSION: 1. No acute findings in the brain. 2. Small air-fluid level left maxillary sinus. Gerry Redmond MD on June 21, 2017 at 11:07 Board Certified Radiologist. This report was verified electronically.
[2017-06-21] MEDS ORDERED: ACETAMINOPHEN/HYDROcodone 325 MG/5 MG TAB PO ONE (12:45)
[2017-06-21] MEDS ORDERED: methylPREDNISolone SO SUCC INJ 1,000 MG in DEXTROSE 5% IN WATER 100ML INJ 100 ML IV ONE ×4 (13:00→13:15)
--- NOTE | 2017-06-21 13:00 | HHI.HP ---
[facility] No Primary Care Physician Admission Diagnosis possible optic neuritis Diagnoses: (1) Blurred vision Diagnosis: Principal (2) Photophobia Diagnosis: Principal (3) Optic neuritis Diagnosis: Principal Travel History International Travel<30 Days: No Contact w/Intl Traveler <30 Da: No Traveled to Known Affected Are: No History of Present Illness Written by Chad Petersen, acting as scribe for Dr. Redman on 06/21/17 at 12 :59. 46 year-old male with known history of hypertension who presented to hospital because of eye pain, photophobia, blurred vision. Patient indicates that her last 5 months he has been having progressive blurred vision, eye pain. Patient indicates that he did go to optometry for eye evaluation and was told that his vision was 20/100, 20/80 and patient needed to have evaluation with ophthalmology. Patient was evaluated at [facility] on Thursday of this week by ophthalmology and he indicates that his vision was 20/800 at that visit and he was notified to follow-up with a neurologist for further evaluation and management of optic neuritis. The patient has not followed up with any neurologist this time. Patient came to emergency department because he had worsening pain, photophobia. The patient had evaluation done by ER physician, who called neurologist that recommended patient be admitted with MRI, Solu- Medrol, lumbar puncture. At the time evaluating the patient he appears to be in painful distress. He is wearing sunglasses and covering his eyes with a washcloth because of his pain. He states that he has not been able to drive himself because he cannot see due to the severe blurred vision. His son and have had to drive him places. The patient has been admitted waiting further evaluation and results for appropriate management Review of Systems Eyes: COMPLAINS OF: Blurred vision, Eye pain, Photosensitivity Except as stated in HPI: all other systems reviewed are Neg Past Family Social History Past Medical History Hypertension Anxiety depression Recent neck/back injury, undergoing workman comp workup and treatment Past Surgical History Exploratory laparoscopy Right hand third digit nerve repair Reported Medications Reported Meds & Active Scripts Active Reported Lisinopril 20 Mg Tab 20 Mg PO DAILY Allergies: Coded Allergies: acetaminophen (Unverified Allergy, Unknown, 06/21/17) propoxyphene (Unverified Allergy, Unknown, 06/21/17) Family History Reviewed is significant for mother having heart disease, myocardial infarction, cancer Social History No indication of any tobacco, alcohol or illicit drugs Physical Exam Vital Signs Vital Signs Date Time Temp Pulse Resp B/P (MAP) Pulse Ox O2 Delivery O2 Flow Rate FiO2 06/21/17 10:15 97.6 83 18 170/96 (120) 98 Physical Exam GENERAL: Well-developed, well-nourished, patient appears to be in painful distress. alert and orientated HEENT: Head is normocephalic without any lesions or masses noted. Facial features are symmetric. Eyes: Patient wearing sunglasses and covering eyes with washcloth due to severe pain and photophobia. Will defer exam since ER physician already has done one and awaiting neurology who will also perform exam. Oropharyngeal: Pharynx without any erythema edema. Tongue is midline without deviation. Buccal mucosa is moist without any masses or lesions NECK: Supple without any masses. Trachea midline no deviation. No JVD, no bruits are appreciated CARDIAC: Regular rhythm, regular rate. S1/S2 are heard. No murmurs gallops or rubs. LUNGS: Clear to auscultation bilaterally. No wheeze, rhonchi or rales. No use of accessory muscles on inspiration or expiration. ABDOMEN: Soft, nontender. Nondistended. Bowel sounds heard in all 4 quadrants. No organomegaly or masses. Negative rebound, negative guarding EXTREMITIES: No edema, pulses are equal bilaterally. No cyanosis or clubbing NEUROLOGY: Mood and affect appear appropriate. Cranial nerves II through XII grossly intact. Muscle strength 5/5 in upper and lower extremities bilaterally. Deep tendon reflexes are 2+ in upper and lower extremities bilaterally. Caprini VTE Risk Assessment Caprini VTE Risk Assessment: No/Low Risk (score <= 1) Caprini Risk Assessment Model Point Value = 1 Point Value = 2 Point Value = 3 Point Value = 5 Age 41-60 Minor surgery BMI > 25 kg/m2 Swollen legs Varicose veins or History of unexplained or recurrent spontaneous Oral contraceptives or hormone replacement Sepsis (< 1 month) Serious lung disease, including pneumonia (< 1 month) Abnormal pulmonary function Acute myocardial infarction Congestive heart failure (< 1 month) History of inflammatory bowel disease Medical patient at bed rest Age 61-74 Arthroscopic surgery Major open surgery (> 45 min) Laparoscopic surgery (> 45 min) Malignancy Confined to bed (> 72 hours) Immobilizing plaster cast Central venous access Age >= 75 History of VTE Family history of VTE Factor V Leiden Prothrombin [id number] Lupus anticoagulant Anticardiolipin antibodies Elevated serum homocysteine Heparin-induced thrombocytopenia Other congenital or acquired thrombophilia Stroke (< 1 month) Elective arthroplasty Hip, pelvis, or leg fracture Acute spinal cord injury (< 1 month) Prophylaxis Regimen Total Risk Factor Score Risk Level Prophylaxis Regimen 0-1 Low Early ambulation 2 Moderate Order ONE of the following: *Sequential Compression Device (SCD) *Heparin 5000 units SQ BID 3-4 Higher Order ONE of the following medications: *Heparin 5000 units SQ TID *Enoxaparin/Lovenox 40 mg SQ daily (WT < 150 kg, CrCl > 30 mL/min) *Enoxaparin/Lovenox 30 mg SQ daily (WT < 150 kg, CrCl > 10-29 mL/min) *Enoxaparin/Lovenox 30 mg SQ BID (WT < 150 kg, CrCl > 30 mL/min) AND/OR *Sequential Compression Device (SCD) 5 or more Highest Order ONE of the following medications: *Heparin 5000 units SQ TID (Preferred with Epidurals) *Enoxaparin/Lovenox 40 mg SQ daily (WT < 150 kg, CrCl > 30 mL/min) *Enoxaparin/Lovenox 30 mg SQ daily (WT < 150 kg, CrCl > 10-29 mL/min) *Enoxaparin/Lovenox 30 mg SQ BID (WT < 150 kg, CrCl > 30 mL/min) AND *Sequential Compression Device (SCD) Assessment and Plan Problem List: (1) Optic neuritis ICD Code: H46.9 - Unspecified optic neuritis Assessment and Plan 46-year-old man with Blurred vision, photophobia, possible optic neuritis ER physician spoke with neurologist who recommended admission for IV Solu- Medrol, MRI of the brain, lumbar puncture CT scan indicates air-fluid level left maxillary sinus Normal ESR pending CRP Solu-Medrol 1 g IV for 3 days Neurologist consulted for further recommendations Consider ophthalmology consultation Hypertension Continue home medications DVT prevention Sequential compression devices This note was transcribed by rhett Petersen. I, Dr. Dash Redman personally performed the history, physical exam, and medical decision making; and confirmed the accuracy of the information in the transcribed note. Authenticated by Dr. Dash Redman on 06/21/17 at 12:59. Code Status Full code Discussed Condition With Patient, ED physician Physician Certification 2 Midnight Certification Type: Admission for Inpatient Services Order for Inpatient Services The services are ordered in accordance with Medicare regulations or non- Medicare payer requirements, as applicable. In the case of services not specified as inpatient-only, they are appropriately provided as inpatient services in accordance with the 2-midnight benchmark. Estimated LOS (days): 3 days is the estimated time the patient will need to remain in the hospital, assuming treatment plan goals are met and no additional complications. Post-Hospital Plan: Not yet determined Chad Petersen Jun 21, 2017 13:00 Dash Redman MD Jun 21, 2017 13:03
[2017-06-21] MEDS ORDERED: MAGNESIUM HYDROXIDE SUSP 30 ML CUP PO PRN (13:15)
[2017-06-21] MEDS ORDERED: ACETAMINOPHEN 325 MG TAB PO PRN (13:15)
[2017-06-21] MEDS ORDERED: SODIUM CHLORIDE 0.9% FLUSH 10 ML FLUSH IV FLUSH PRN (13:15)
[2017-06-21] MEDS ORDERED: ONDANSETRON HCL 4 MG/2 ML VIAL IVP PRN (13:15)
[2017-06-21] MEDS ORDERED: NALOXONE HCL 0.4 MG/ML AMP IV PUSH PRN (13:15)
[2017-06-21] MEDS ORDERED: RESP: ALBUTEROL 2.5 MG/IPRATROPIUM 0.5 MG NEB (PRN) NEB (13:15)
[2017-06-21 13:16] LABS: BASOPHIL % 0.5 % (0.0-2.0); CHLORIDE 106 MEQ/L (98-107); EOSINOPHIL % 0.5 % (0.0-4.0); HEMATOCRIT 45.6 % (39.0-51.0); HEMO FLAGS DIFF FINAL; LYMPH % 27.9 % (9.0-44.0); LYMPHOCYTE # 2.1 TH/MM3 (1.0-4.8); MEAN CELL VOLUME 89.6 FL (80.0-100.0); MEAN CORPUSCULAR HEMOGLOBIN 29.7 PG (27.0-34.0); MEAN CORPUSCULAR HGB CONC 33.1 % (32.0-36.0); NEUT % 64.1 % (16.0-70.0); PLATELET COUNT 229 TH/MM3 (150-450); POTASSIUM 4.3 MEQ/L (3.5-5.1); RED BLOOD COUNT 5.09 MIL/MM3 (4.50-5.90); RED CELL DISTRIBUTION WIDTH 13.6 % (11.6-17.2); SODIUM (NA) 139 MEQ/L (136-145); WHITE BLOOD COUNT 7.6 TH/MM3 (4.0-11.0)
[2017-06-21 13:21] LABS: ANION GAP 5 MEQ/L (5-15); APTT (PATIENT) 33.4 SEC (24.3-30.1); BICARBONATE 28.3 MEQ/L (21.0-32.0); BLOOD UREA NITROGEN 9 MG/DL (7-18); INTERNATIONAL NORMALIZED RATIO 0.9 RATIO; PROTHROMBIN TIME - PATIENT 10.2 SEC (9.8-11.6)
[2017-06-21 13:24] LABS: ALT (GPT) 23 U/L (12-78); AST (GOT) 14 U/L (15-37); GLOMERULAR FILTRATION RATE 80 ML/MIN (>89)
[2017-06-21 13:26] LABS: TOTAL BILIRUBIN ADULT 0.6 MG/DL (0.2-1.0)
[2017-06-21 13:27] LABS: ALKALINE PHOSPHATASE 86 U/L (45-117)
[2017-06-21] MEDS: ENALAPRILAT 2.5 MG/2 ML VIAL IV PUSH PRN (14:47)
--- NOTE | 2017-06-21 19:37 | MB ---
cc: ASHLEY JEROME M.D. DATE OF CONSULTATION: 06/21/2017. REASON FOR CONSULTATION: Optic neuritis. REFERRING PHYSICIAN: Dr. Manley. HISTORY OF PRESENT ILLNESS: Mr. Zuñiga is a pleasant 46-year-old man who has noted for the past four or five months difficulty with decreased vision in both eyes which has been progressive as well as pain behind both eyes. He saw an cna instructor at [facility] who was concerned about optic neuritis. He therefore was referred to Dr. Dante Dalton, ophthalmology, at [facility]. Dr. Dalton' report is reviewed. He found concentric constriction of his visual solis on visual field testing and also findings suggestive of optic neuritis bilaterally. His vision has declined. He has no other neurologic symptoms except he does relate numbness in the arms and legs. PAST MEDICAL HISTORY: 1. History of an industrial accident to the lumbar spine. 2. Hypertension. PAST SURGICAL HISTORY: Exploratory laparotomy in the past. ALLERGIES: 1. TYLENOL. 2. PROPOXYPHENE. MEDICATIONS AT HOME: Lisinopril 20 milligrams daily. NEUROLOGIC EXAMINATION: VITAL SIGNS: Blood pressure 172/93, pulse 80, respiratory rate is 16 and temperature is 97 degrees. HIGHER CORTICAL FUNCTIONS: Higher cortical functions are normal. CRANIAL NERVES: Pupils are sluggishly reactive to light. Visual solis are diminished to gross confrontation. Extraocular movements are intact. MOTOR EXAM: On motor exam, he has got weakness in both upper and lower extremities. It is difficult to know whether this is true weakness versus give-way. REFLEXES: 1+ symmetric with no Babinski. IMAGING STUDIES: CT of the brain is normal. LABS: White count is 7600, hemoglobin 15.1, hematocrit 45%, platelet count is 229,000. Sedimentation rate is 1. PT 10.2, INR 0.9, APTT is 33.4. Sodium is 139, potassium 4.3, chloride 106, carbon dioxide 28.3, the BUN is 9, creatinine 1, GFR is 80, glucose is 86. IMPRESSION: Bilateral optic neuritis. RECOMMENDATIONS: 1. MRI of the brain to rule out multiple sclerosis. 2. Also recommend checking CSF to rule out signs of MS. 3. Recommend Solu-Medrol 1000 milligrams IV daily for three days. 4. Also recommend additional labs including vitamin B12 level, thyroid and also the anti-NMO antibody to rule out to neuromyelitis optica. MD ANIRUDH Muñoz/VIRAJ /7:18 PM /7:34 PM
[2017-06-21] MEDS: SODIUM CHLORIDE 0.9% FLUSH 10 ML FLUSH IV FLUSH SCH (20:43)
[2017-06-21] MEDS: ACETAMINOPHEN 325 MG TAB PO PRN (20:44)
[2017-06-21] MEDS ORDERED: ACETAMINOPHEN/HYDROcodone 325 MG/7.5 MG TAB PO ONE (23:30)
[2017-06-22 04:00] VITALS: BP 120/71; PULSE 80; RESP 18; TEMP 98.1; O2SAT 93
[2017-06-22] MEDS: ACETAMINOPHEN 325 MG TAB PO PRN (06:18)
[2017-06-22 08:00] VITALS: BP 149/92; PULSE 89; RESP 16; TEMP 96; O2SAT 94
[2017-06-22] MEDS: PANTOPRAZOLE SOD 40 MG DELAYED RELEASE TAB PO SCH (09:13)
[2017-06-22] MEDS: LISINOPRIL 20 MG TAB PO SCH (09:14)
[2017-06-22] MEDS: SODIUM CHLORIDE 0.9% FLUSH 10 ML FLUSH IV FLUSH SCH ×2 (09:14→19:39)
--- NOTE | 2017-06-22 10:08 | HHI.PR ---
Subjective Remarks Follow-up blurry vision/ rule out optic neuritis versus neuromyelitis optica 06/22/17-patient seen and examined; still complains of bilateral eye pain worse L>R Objective Vitals Vital Signs Date Time Temp Pulse Resp B/P (MAP) Pulse Ox O2 Delivery O2 Flow Rate FiO2 06/22/17 08:00 96.0 89 16 149/92 (111) 94 06/22/17 07:18 20 06/22/17 04:00 98.1 80 18 120/71 (87) 93 06/21/17 23:59 98.0 99 18 134/83 (100) 98 06/21/17 21:51 98.3 95 16 136/93 (107) 96 06/21/17 17:07 18 06/21/17 17:00 98.5 84 18 151/88 (109) 95 06/21/17 16:08 80 16 172/93 (119) 98 06/21/17 14:42 85 16 170/98 (122) 95 Room Air 06/21/17 13:06 77 16 180/116 (137) 100 Room Air 06/21/17 10:15 97.6 83 18 170/96 (120) 98 I/O 06/21/17 06/21/17 06/21/17 06/22/17 06/22/17 06/22/17 07:00 15:00 23:00 07:00 15:00 23:00 Intake Total 100 ml 480 ml Balance 100 ml 480 ml Intake Oral 480 ml IV Total 100 ml # Voids 5 # Bowel Movements 0 Result Diagram: 06/21/17 1250 06/21/17 1250 Imaging Last Impressions Head CT 06/21/17 0000 Signed Impressions: Service Date/Time: Wednesday, June 21, 2017 10:43 - CONCLUSION: 1. No acute findings in the brain. 2. Small air-fluid level left maxillary sinus. Gerry Redmond MD Objective Remarks GENERAL: SKIN: Warm and dry. HEAD: Normocephalic. EYES: No scleral icterus. No injection or drainage. severe eyes pain NECK: Supple, trachea midline. No JVD or lymphadenopathy. CARDIOVASCULAR: Regular rate and rhythm without murmurs, gallops, or rubs. RESPIRATORY: Breath sounds equal bilaterally. No accessory muscle use. GASTROINTESTINAL: Abdomen soft, non-tender, nondistended. MUSCULOSKELETAL: No cyanosis, or edema. BACK: Nontender without obvious deformity. No CVA tenderness. A/P Problem List: (1) Optic neuritis ICD Code: H46.9 - Unspecified optic neuritis Assessment and Plan 46-year-old man with Blurred vision, photophobia, possible optic neuritis Currently on Solu-Medrol 1 g IV daily 3 days total (end date 06/23/17 after 4 PM) CT scan indicates air-fluid level left maxillary sinus Normal ESR pending CRP Awaiting for brain MRI and lumbar puncture to rule out multiple sclerosis, as well as anti-NMO antibody to rule out to neuromyelitis optica Pain medication accordingly Appreciate input from neurology Hypertension Continue home medications DVT prevention Sequential compression devices Dash Redman MD Jun 22, 2017 10:08
[2017-06-22] MEDS: ACETAMINOPHEN/HYDROcodone 325 MG/7.5 MG TAB PO PRN ×2 (12:31→19:39)
--- NOTE | 2017-06-22 12:53 | RADRPT ---
EXAM DATE/TIME: 06/22/2017 12:01 [facility] COMPARISON: No previous studies available for comparison. INDICATIONS : Cephalgia. Bilateral eye pain for three to four days. CONTRAST: 18 cc Omniscan (gadodiamide) IV MEDICAL HISTORY : Hypertension. SURGICAL HISTORY : Abdomen sx, Hand sx. ENCOUNTER: Initial ACUITY: 4-6 days PAIN SCORE: 10/10 LOCATION: Bilateral orbits region. TECHNIQUE: Multiplanar, multisequence MRI of the brain was performed both prior to and following the administrat ion of paramagnetic contrast. FINDINGS: CEREBRUM: There is a homogeneously enhancing extra-axial mass in the high convexity right frontal region near t he vertex. The mass probably abuts the dural surface with a contact diameter of approximately 16 mm a nd a thickness of the left 7 mm. This has the appearance of a meningioma. There is no abnormal signal or abnormal enhancement in the underlying adjacent brain parenchyma. The brain is elsewhere symmetri c and normal. The ventricles are symmetric and normal. WHITE MATTER: No significant signal abnormalities are seen in the white matter. POSTERIOR FOSSA: The cerebellum and brainstem are intact. The 4th ventricle is midline. The cerebellopontine angle is unremarkable. The cerebellar tonsils are normal in position. DIFFUSION IMAGING: No focal areas of restricted diffusion are seen. No evidence of acute infarction. EXTRACRANIAL: The visualized portions of the orbits and paranasal sinuses are unremarkable. POST-CONTRAST: See above. Otherwise normal enhancement and intracranial vascular structures with no abnormal parench ymal brain enhancement. CONCLUSION: Small high convexity right frontal meningioma. Roby Owen MD on June 22, 2017 at 12:38 Board Certified Radiologist. This report was verified electronically.
--- NOTE | 2017-06-22 12:55 | RADRPT ---
EXAM DATE/TIME: 06/22/2017 12:01 [facility] COMPARISON: No previous studies available for comparison. INDICATIONS : Cephalgia. MEDICAL HISTORY : Hypertension. SURGICAL HISTORY : None. ENCOUNTER: Initial ACUITY: 4-6 days PAIN SCORE: 9/10 LOCATION: Bilateral orbits region. Please note a normal MRA of the brain does not entirely exclude the possibility of a small aneurysm, nor the possibility of distal intracranial vessel disease. TECHNIQUE: 3D time of flight MRA was performed. Source images, multiplanar STS MIP, and 3D volume MIP reconstru ctions were reviewed. FINDINGS: There is excellent visualization of the major intracranial arteries out to the second-order branch ve ssels. There is no evidence for aneurysm, vessel truncation or stenosis, and no evidence for vascula r malformation. The left posterior cerebral artery arises in fashion CONCLUSION: No acute [place] vascular findings Roby Owen MD on June 22, 2017 at 12:51 Board Certified Radiologist. This report was verified electronically.
[2017-06-22 13:00] VITALS: BP 131/83; PULSE 91; RESP 18; TEMP 96.6; O2SAT 98
[2017-06-22] MEDS ORDERED: GADODIAMIDE PF 287 MG/ML 5 ML VIAL (for RAD MRI) IVCONTRAST ONE (14:52)
[2017-06-22] MEDS: methylPREDNISolone SO SUCC INJ 1,000 MG in DEXTROSE 5% IN WATER 100ML INJ 100 ML IV SCH ×2 (15:08)
--- NOTE | 2017-06-22 15:56 | PD.RAD ---
Post Procedure Progress Note Pre Procedure Diagnosis: (1) Headache (2) Photophobia (3) Blurred vision Post Procedure Diagnosis: (1) Headache (2) Photophobia (3) Blurred vision Procedure Date: Jun 22, 2017 Supervising Radiologist: Roby Owen Proceduralist/Assist: Maddy Lowe, RT(R)(CV), Alexandr Avina, RT(R) Estimated blood loss: 0 Anesthesia: Local Plan of Activity Patient to Unit: Nursing Unit Patient Condition: Fair See PACS Report for procedural detail/treatment Spinal Procedure Lumbar Puncture L2-L3 Fluid Removal (CCs): 13 Fluid Description: Clear Puncture Time: 14:52 Findings: opening pressure 15 cm H2O Roby Owen MD Jun 22, 2017 15:55
--- NOTE | 2017-06-22 16:06 | RADRPT ---
EXAM DATE/TIME: 06/22/2017 14:02 [place] COMPARISON: No previous studies available for comparison. INDICATIONS : Patient presents with optic neuritis and headache in need of lumbar puncture for evaluation. MEDICAL HISTORY : Hypertension Anxiety Depression Recent neck/back injury SURGICAL HISTORY : Exploratory laparoscopy Right hand third digit nerve repair ENCOUNTER: Initial ACUITY: 4 - 6 months PAIN SCORE: 8/10 LOCATION: Bilateral eyes, headache LUMBAR PUNCTURE TIME: 1452 hours FLUORO TIME: 1.0 minutes ACCESS LEVEL: L2-3 OPENING PRESSURE: 15 cm of water CLOSING PRESSURE: Not requested. FLUID: 13 cc of clear CSF was collected and sent to the laboratory for analysis. PROCEDURE : 1. Fluoroscopic guided lumbar puncture. 2. Recording of opening pressure. The risks, benefits and alternatives to the procedure were explained and verbal and written consent w as obtained. The site was prepped in sterile fashion. Full sterile technique was used, including ca p, mask, sterile gloves and gown and a large sterile sheet. Hand hygiene and 2% chlorhexidine and/or betadine/alcohol prep was utilized per protocol for cutaneous antisepsis. The skin and subcutaneous tissues were infiltrated with local anesthetic solution. With fluoroscopic guidance the lumbar thecal sac was punctured at the above level described above and the opening pressure was recorded. The above described fluid was removed without difficulty. The patient tolerated the procedure well and there were no complications. CONCLUSION: Uncomplicated fluoroscopically guided lumbar puncture with pressures as above. Roby Owen MD on June 22, 2017 at 16:03 Board Certified Radiologist. This report was verified electronically.
[2017-06-22 16:46] LABS: SUPERNATE COLOR TUBE #1 CLEAR (CLEAR); SUPERNATE COLOR TUBE #2 CLEAR (CLEAR); WBC TUBE #1 6 /MM3 (0-10)
[2017-06-22 16:47] LABS: CSF LYMPHOCYTES 84 %; CSF NEUTROPHILS 0 %; SUPERNATE COLOR TUBE #3 CLEAR (CLEAR); SUPERNATE COLOR TUBE #4 CLEAR (CLEAR); VOLUME TUBE # 4 3.5 ML
[2017-06-22 16:49] LABS: GROSS BLOOD TUBE #1 0 (0); GROSS BLOOD TUBE #2 0 (0); GROSS BLOOD TUBE #3 0 (0); GROSS BLOOD TUBE #4 0 (0)
[2017-06-22 16:59] LABS: LACTIC ACID,CSF 2.7 MMOL/L (0.0-3.0)
[2017-06-22 17:00] VITALS: BP 137/82; PULSE 85; RESP 16; TEMP 96; O2SAT 97
[2017-06-22] MEDS: ENALAPRILAT 2.5 MG/2 ML VIAL IV PUSH PRN (19:46)
[2017-06-22 20:00] VITALS: BP 154/100; PULSE 84; RESP 18; TEMP 97.7; O2SAT 95
[2017-06-23] VITALS: BP 103/57; PULSE 74; RESP 18; TEMP 97.7; O2SAT 92
[2017-06-23] MEDS: ACETAMINOPHEN/HYDROcodone 325 MG/7.5 MG TAB PO PRN ×3 (01:39→13:41)
[2017-06-23 08:00] VITALS: BP 143/82; PULSE 75; RESP 18; TEMP 96.5; O2SAT 98
[2017-06-23] MEDS: LISINOPRIL 20 MG TAB PO SCH (08:31)
[2017-06-23] MEDS: SODIUM CHLORIDE 0.9% FLUSH 10 ML FLUSH IV FLUSH SCH (08:31)
[2017-06-23] MEDS: PANTOPRAZOLE SOD 40 MG DELAYED RELEASE TAB PO SCH (08:31)
[2017-06-23] MEDS ORDERED: cloNIDine HCL 0.1 MG TAB PO PRN ×2 (11:00→11:45)
--- NOTE | 2017-06-23 11:40 | HHI.PR ---
Subjective Remarks Patient seen and evaluated today in follow-up for optic neuritis. Doing well on steroids. Pain is improved and patient says it is now 5 out of 1078 out of 10. Care plan discussed with patient, spouse. Patient still blurry peripherally. Patient more ambulatory today Objective Vitals Vital Signs Date Time Temp Pulse Resp B/P (MAP) Pulse Ox O2 Delivery O2 Flow Rate FiO2 06/23/17 08:47 18 06/23/17 08:00 96.5 75 18 143/82 (102) 98 06/23/17 00:00 97.7 74 18 103/57 (72) 92 06/22/17 20:00 97.7 84 18 154/100 (118) 95 06/22/17 20:00 97.7 84 18 154/100 (118) 95 06/22/17 17:00 96.0 85 16 137/82 (100) 97 06/22/17 13:00 96.6 91 18 131/83 (99) 98 I/O 06/22/17 06/22/17 06/22/17 06/23/17 06/23/17 06/23/17 07:00 15:00 23:00 07:00 15:00 23:00 Intake Total 480 ml 444 ml 720 ml 240 ml Balance 480 ml 444 ml 720 ml 240 ml Intake Oral 480 ml 444 ml 720 ml 240 ml # Voids 5 12 2 # Bowel Movements 0 0 0 Result Diagram: 06/21/17 1250 06/21/17 1250 Imaging Last Impressions Head Magnetic Resonance Angiography 06/22/17 0000 Signed Impressions: Service Date/Time: Thursday, June 22, 2017 12:01 - CONCLUSION: No acute [place] vascular findings Roby Owen MD Brain MRI 06/22/17 0000 Signed Impressions: Service Date/Time: Thursday, June 22, 2017 12:01 - CONCLUSION: Small high convexity right frontal meningioma. Roby Owen MD Lumbar Puncture Fluoroscopy 06/21/17 0000 Signed Impressions: Service Date/Time: Thursday, June 22, 2017 14:02 - CONCLUSION: Uncomplicated fluoroscopically guided lumbar puncture with pressures as above. Roby Owen MD Head CT 06/21/17 0000 Signed Impressions: Service Date/Time: Wednesday, June 21, 2017 10:43 - CONCLUSION: 1. No acute findings in the brain. 2. Small air-fluid level left maxillary sinus. Gerry Redmond MD Objective Remarks GENERAL: This is a well-nourished, well-developed patient, in no apparent distress. CARDIOVASCULAR: Regular rate and rhythm without murmurs, gallops, or rubs. RESPIRATORY: Clear to auscultation. Breath sounds equal bilaterally. No wheezes , rales, or rhonchi. GASTROINTESTINAL: Abdomen soft, non-tender, nondistended. Normal active bowel sounds MUSCULOSKELETAL: Extremities without clubbing, cyanosis, or edema. NEURO: eye vision decreased, Alert & Oriented x4 to person, place, time, situation. Moves all ext x4 A/P Problem List: (1) Optic neuritis ICD Code: H46.9 - Unspecified optic neuritis Plan: Continue IV steroids 1 g daily for 3 total days Continue with pain management (2) HTN (hypertension) ICD Code: I10 - Essential (primary) hypertension Plan: on lisinopril add Clonidine prn (3) Benign meningioma of brain ICD Code: D32.0 - Benign neoplasm of cerebral meninges Plan: continue surveillance Discussed with patient and spouse Fozia Owens MD Jun 23, 2017 11:40
[2017-06-23 12:00] VITALS: BP 130/78; PULSE 71; RESP 18; TEMP 97.7; O2SAT 96
[2017-06-23] MEDS: methylPREDNISolone SO SUCC INJ 1,000 MG in DEXTROSE 5% IN WATER 100ML INJ 100 ML IV SCH ×2 (13:41)
[2017-06-23 16:00] VITALS: BP 127/80; PULSE 69; RESP 16; TEMP 97.4; O2SAT 97
[2017-06-25 10:19] LABS: ALBUMIN SERUM 4650 mg/dL (3200 - 4800); IGG CSF 2.3 mg/dL (<=8.1); IGG SERUM 947 mg/dL (767 - 1590); IGG/ALBUMIN CSF 0.12 (<=0.21); OLIGOCLONAL BANDING CSF 1 bands; OLIGOCLONAL BANDING INTERPRET 0 bands (<4); OLIGOCLONAL BANDING SERUM 1 bands
[2017-06-25 11:51] LABS: LYME DISEASE PCR NOT DETECTED
[2017-06-25 16:40] LABS: CSF CRYPTOCOCCUS AG CONF ND (NOT DETECTD)
[2017-06-25 19:54] LABS: VDRL CSF NON-REACTIVE (NON-REACTVE)
== END 2017-06-23 18:19 | disposition left against medical advice (07) | DRG 123 ==
LOC: PHED 10:11 → PHEDA 12:59 → PH3A 16:12
PROVIDERS: ADMIT Hospitalist; ATTEND Hospitalist
PROC: 009U3ZX Drainage of Spinal Canal, Percutaneous Approach, Diagnostic (ICD-10-PCS; principal; 2017-06-22)
DX: H46.9 Unspecified optic neuritis (principal); D32.0 Benign neoplasm of cerebral meninges; I10 Essential (primary) hypertension; H54.7 Unspecified visual loss; F41.8 Other specified anxiety disorders; Z88.6 Allergy status to analgesic agent
CPT/HCPCS: 62270; 70450; 70544; 70553; 77003; 80053; 82040; 82042; 82607; 82784; 82945; 83605; 83873; 83916; 84157; 85025; 85610; 85652; 85730; 86140; 86403; 86592; 87015; 87070; 87116; 87205; 87206; 87801; 89051; A9579; J2930

== ENCOUNTER 2017-08-02 09:27 | Emergency (ER) | payer MEDICAID ==
[~2017-08-02] VITALS: Ht 185.4 cm; Wt 92.4 kg
[~2017-08-02 09:27] MED LIST changes: -CYCL10TA PO; -IBUP1TAB7 PO; -MEDR4PAK PO; -PRED20 PO; -TRAM50TA PO
[2017-08-02 09:29] VITALS: BP 161/110; PULSE 87; RESP 17; TEMP 98.1; O2SAT 98
[2017-08-02] MEDS ORDERED: VISISOL EACH EYE (09:43)
[2017-08-02] MEDS ORDERED: PROPARACAINE HCL 0.5% OPHT SOLN 15 ML BTL EACH EYE ONE (10:00)
[2017-08-02] MEDS ORDERED: HYDR7.5T76 PO (10:06)
--- NOTE | 2017-08-02 10:07 | PD ---
HPI Chief Complaint: Eye Problems/Injury Time Seen by Provider: 09:57 Travel History International Travel<30 days: No Contact w/Intl Traveler<30days: No Traveled to known affect area: No History of Present Illness HPI Patient presents for persistent eye pain. 46-year-old male who has had progressive blurred vision over the last 6-7 months. Evaluated by ophthalmology with recommendations to follow-up with neurology. Patient did not secondary to inability to drive. Presented to the emergency room at the end of May with recommendations by the on-call neurologist for admission secondary to optic neuritis. Workup was completed including a lumbar spine and MRI MRA ect. No significant findings. Patient recommendations by the neurologist to follow-up at the end of July. Patient is scheduled. States Ultram is not controlling his pain. PFSH Past Medical History Hx Anticoagulant Therapy: No Cardiovascular Problems: Yes (htn) Chemotherapy: No Cerebrovascular Accident: No Diabetes: No Diminished Hearing: No Hypertension: Yes Respiratory: No Immunizations Current: Yes Tetanus Vaccination: Unknown Past Surgical History Abdominal Surgery: Yes (EXPLORATORY LAP STOMACH) Other Surgery: Yes (RT RING FINGER) Social History Alcohol Use: No Tobacco Use: No Substance Use: No Allergies-Medications (Allergen,Severity, Reaction): Coded Allergies: acetaminophen (Unverified Allergy, Unknown, 08/02/17) propoxyphene (Unverified Allergy, Unknown, 08/02/17) Reported Meds & Prescriptions Reported Meds & Active Scripts Active Reported Visine Maximum Redness Relief Opth Drops (Kafpednuzlf-Bwygoavy-Wnkohoxzidgd Opth Drops) 0.05-0.2-0.36-1 % Soln 1-2 Drop EACH EYE QID PRN Lisinopril 20 Mg Tab 20 Mg PO DAILY Review of Systems General / Constitutional: No: Fever Eyes: Positive: Blurred Vision, Photophobia, Pain, Tearing, No: Visual changes HENT: No: Headaches Cardiovascular: No: Chest Pain or Discomfort Respiratory: No: Shortness of Breath Gastrointestinal: No: Abdominal Pain Genitourinary: No: Dysuria Musculoskeletal: No: Pain Skin: No Rash Neurologic: No: Weakness Psychiatric: No: Depression Endocrine: No: Polydipsia Hematologic/Lymphatic: No: Easy Bruising Physical Exam Narrative GENERAL: Well-nourished, well-developed patient. SKIN: Focused skin assessment warm/dry. HEAD: Normocephalic. EYES: No scleral icterus. No injection or drainage. Pupils equal round reactive light accommodation, severe photophobia NECK: Supple, trachea midline. No JVD or lymphadenopathy. CARDIOVASCULAR: Regular rate and rhythm without murmurs, gallops, or rubs. RESPIRATORY: Breath sounds equal bilaterally. No accessory muscle use. GASTROINTESTINAL: Abdomen soft, non-tender, nondistended. MUSCULOSKELETAL: No cyanosis, or edema. BACK: Nontender without obvious deformity. No CVA tenderness. Data Data Last Documented VS Vital Signs Date Time Temp Pulse Resp B/P (MAP) Pulse Ox O2 Delivery O2 Flow Rate FiO2 08/02/17 09:29 98.1 87 17 161/110 (127) 98 Orders Orders Proparacaine 0.5% Opth Soln (Alcaine 0.5 (08/02/17 10:00) MDM Medical Decision Making Medical Screen Exam Complete: Yes Emergency Medical Condition: Yes Differential Diagnosis malingering, optic neuritis, medical noncompliance, retinal detachment Narrative Course Assessment and plan discussed with patient at bedside. Proparacaine provided times one. Diagnosis Primary Impression: Optic neuritis Additional Instructions: Encouraged keep regular scheduled appointment with neurology. Encouraged to follow-up with ophthalmology and/or neurology for further pain medication. Return to emergency with any onset of new symptoms. Med/Other Pt SpecificInfo: Prescription(s) given Scripts Hydrocodone-Ibuprofen (Hydrocodone-Ibuprofen) 7.5-200 Mg Tab 1 TAB PO TID for Pain, #30 TAB 0 Refills Prov: Valdo Manley MD 08/02/17 Disposition: 01 DISCHARGE HOME Condition: Good Valdo Manley MD Aug 02, 2017 10:07
[2017-08-02] MEDS ORDERED: cloNIDine HCL 0.1 MG TAB PO ONE ×2 (10:15→11:15)
[2017-08-02 10:35] VITALS: BP 160/109
[2017-08-02 11:04] VITALS: BP 161/110; PULSE 71; RESP 16; O2SAT 96
[2017-08-02 11:39] VITALS: BP 149/97
== END 2017-08-02 11:50 | disposition home or self-care (01) ==
LOC: PHED 09:27
DX: H46.9 Unspecified optic neuritis (principal); I10 Essential (primary) hypertension
CPT/HCPCS: 99283